=== PATIENT | female | born 1985 | race American Indian/Alaskan Native ===

== ENCOUNTER 2019-07-21 10:39 | Emergency (ER) | payer OTHER ==
[~2019-07-21] VITALS: Ht 165.1 cm; Wt 74.8 kg
[~2019-07-21 10:39] MED LIST: CIPRO500 MG PO; NORCO 5-325 TA1 EACH PO; PROVENTIL HFA6.7 GM INH
[2019-07-21] MEDS ORDERED: CYCLOBENZAPRINE10 MG PO (12:18)
== END 2019-07-21 12:48 | disposition home or self-care (01) ==
LOC: ED 10:39
DX: S39.012A Strain of muscle, fascia and tendon of lower back, initial encounter (principal); S70.02XA Contusion of left hip, initial encounter; S70.01XA Contusion of right hip, initial encounter; V49.9XXA Car occupant (driver) (passenger) injured in unspecified traffic accident, initial encounter
CPT/HCPCS: 99283

== ENCOUNTER 2021-12-04 10:03 | Inpatient (IN) | payer OTHER ==
[~2021-12-04] VITALS: Ht 165.1 cm; Wt 92.1 kg
[~2021-12-04 10:03] MED LIST changes: +CYCLOBENZAPRINE10 MG PO
--- NOTE | 2021-12-10 08:33 | NUR ---
12/10/21 0833 Sheets,Sofya 0818 PT TO ROOM 103 WITH [facility] RN AT BEDSIDE. VSS. PT REPORTS FEELING "LIKE I CAN'T TAKE A DEEP BREATH" SPINAL EDUCATION GIVEN, O2 SAT 99%, SPINAL LEVEL T-5. HOB INCREASED SLIGHTLY. UTERUS SLUGHTLY BOGGY AND FIRM WITH MESSAGE, SCANT BLEEDING NOTED. 0828 BABY TO CHEST WITH [facility]BC RN. UTERUS FIRM.
--- NOTE | 2021-12-11 10:32 | PR ---
[facility] [address] [facility] [place] [address] Signed PP Progress Notes Datetime Report Generated by CPN: 12/11/2021 10:32 SUBJECTIVE: [id number] Pain: Within Normal Limits Nausea/Vomiting: Denies Vital Signs: [id number] Vital Signs: Reviewed; Within Normal Limits Notable Details: PP Hgb/Hct = 9.0/27.2 EXAM: Ongoing Abdomen/Uterus: Normal Lochia: Normal Extremities: Normal Incision: Normal IMPRESSION/PLAN/PROCEDURES: [id number] Impression: Normal Progression Other Impression: PP Anemia Plan: Continue Present Management Procedures: None Progress Notes: Doing well, without complaint, tolerating food well, voiding without difficulty. Encouraged to increase activity. Signing Physician: Leticia Baca MD Copies: ~ *Electronically Signed* 12/11/21 1032 LETICIA BACA MD PATIENT NAME: MORGAN JA PROGRESS NOTE DATE OF : 83 PHYSICIAN: LETICIA BACA MD RPT #: [id number] REPORT IS CONFIDENTIAL AND NOT TO BE RELEASED WITHOUT AUTHORIZATION
--- NOTE | 2021-12-11 10:32 | OR ---
[facility] [address] [place], [place] [address] Signed DATE OF OPERATION: 12/10/2021 SURGEON: Camacho Huynh MD The patient of Dr. Huynh. PREOPERATIVE DIAGNOSES: 1. Term . 2. Previous section x2. POSTOPERATIVE DIAGNOSES: 1. Term . 2. Previous section x2. PROCEDURES: Repeat low transverse segment delivery, live male infant. BUFFING LINE SET UP WORKER: Michele Gar.O. ANESTHESIA: Spinal. ESTIMATED BLOOD LOSS: 500 mL. COMPLICATIONS: None. DRAINS: Romero to bladder. FINDINGS: Live male infant, Apgars 6, 8, 9. Weight 8 pounds 9 ounces. Normal uterus except for thinning lower uterine segment and some broad, but filmy omental adhesions at the upper end of the peritoneal incision. Normal tubes and ovaries bilateral. Live male infant, Apgars 6, 8, and 9. Weight 8 pounds 9 ounces. DESCRIPTION OF PROCEDURE: The patient was brought to the operating room, placed in supine position. After Electronically Signed By: CAMACHO HUYNH MD 12/11/21 1032 PATIENT NAME: MORGAN AJ OPERATIVE REPORT DATE OF : 83 REPORT #: [id number] PHYSICIAN: CAMACHO HUYNH MD PCP: OTHER PCP REPORT IS CONFIDENTIAL AND NOT TO BE RELEASED WITHOUT AUTHORIZATION [facility] [address] [place] [address] [place], [place] [address] Signed adequate spinal anesthesia was obtained, she was prepped and draped in the usual sterile fashion. Romero catheter placed in the bladder. Pfannenstiel skin incision was made through previous surgical scar using a scalpel. Subcutaneous tissue was dissected with scalpel and Bovie. Fascia was nicked with scalpel and extended in transverse fashion using curved scissors. The underlying abdominal musculature was bluntly sharply along the midline. The peritoneum was grasped, hemostats elevated, nicked with scissors and extended in vertical fashion using curved scissors. Beck self-retaining retractor was inserted into the incision and tightened in place. The lower uterine segment was identified and noted to be thin, but there was no window present. The lower uterine segment was carefully nicked with scalpel. Finger dissection used to open the incision in a transverse fashion. Clear fluid came from the incision. The head was noted to be in vertex BORIS presentation and the head was easily delivered from the incision. The rest of the was easily delivered from the incision. The cord was doubly clamped and cut. The passed off table in good condition awaiting nurse. The placenta was manually removed. Uterine cavity was explored a lap pad to remove any retained membranes. An angle stitch of 0-Monocryl was placed at one end of the incision and a running locking stitch of 0-Monocryl starting at the other end used to close the incision. A second running stitch of 0-Monocryl was used to imbricate the first layer. Good hemostasis was noted. The entire pelvis was irrigated, suctioned, and examined, and any superficial bleeding spots cauterized with the Bovie. The Beck retractor was removed. The omental adhesions were noted, were broad and thin, but since they were above the area of dissection, it was decided not to attempt to take these down at this time. The anterior wall peritoneum was closed using running stitch of 2-0 Vicryl suture. The abdominal musculature was reapproximated using interrupted stitch of 0-Vicryl suture. The abdominal wall was irrigated, suctioned, and examined, and any bleeding spots cauterized with the Bovie. The fascia was closed using two running stitch of 0-Vicryl suture meeting in the midline. Subcutaneous tissue was irrigated, suctioned, and examined, and any bleeding spots cauterized with the Bovie. The subcuticular tissue was then closed using interrupted stitches of 3-0 Vicryl sutures. Skin was reapproximated using skin clips. The patient tolerated the procedure well, went to the recovery room in good condition. The sponge, needle, and instrument counts were correct at the end of the procedure. Camacho Huynh MD MJB/MODL /[id number] Electronically Signed By: CAMACHO HUYNH MD 12/11/21 1032 PATIENT NAME: MORGAN AJ OPERATIVE REPORT DATE OF : 83 REPORT #: [id number] PHYSICIAN: CAMACHO HUYNH MD PCP: OTHER PCP REPORT IS CONFIDENTIAL AND NOT TO BE RELEASED WITHOUT AUTHORIZATION [facility] [address] [place] [id number] Signed Copies: ~ Electronically Signed By: CAMACHO HUYNH MD 12/11/21 1032 PATIENT NAME: MORGAN AJ FRANKIE OPERATIVE REPORT DATE OF : 83 REPORT #: [id number] PHYSICIAN: CAMACHO HUYNH MD PCP: OTHER PCP REPORT IS CONFIDENTIAL AND NOT TO BE RELEASED WITHOUT AUTHORIZATION
--- NOTE | 2021-12-12 08:22 | PR ---
[facility] [address] [facility] [place] [address] Signed PP Progress Notes Datetime Report Generated by CPN: 12/12/2021 08:22 SUBJECTIVE: [id number] Pain: Within Normal Limits Nausea/Vomiting: Denies Vital Signs: [id number] Vital Signs: Reviewed; Within Normal Limits Notable Details: PP Hgb/Hct = 9.0/27.2 EXAM: Ongoing Abdomen/Uterus: Normal Lochia: Normal Extremities: Normal Incision: Normal IMPRESSION/PLAN/PROCEDURES: [id number] Impression: Normal Progression Other Impression: PP Anemia Plan: Discharge Procedures: None Progress Notes: Doing well, without complaint, ready to go home. Signing Physician: Leticia Baca MD Copies: ~ *Electronically Signed* 12/12/21821 LETICIA BACA MD PATIENT NAME: MORGAN AJ PROGRESS NOTE DATE OF : 83 PHYSICIAN: LETICIA BACA MD RPT #: [id number] REPORT IS CONFIDENTIAL AND NOT TO BE RELEASED WITHOUT AUTHORIZATION
== END 2021-12-12 12:10 | disposition home or self-care (01) | DRG 787 ==
LOC: FBC 12-10 05:25
PROVIDERS: ADMIT General Practice; ATTEND General Practice
PROC: 10D00Z1 Extraction of Products of Conception, Low, Open Approach (ICD-10-PCS; principal; 2021-12-10 07:30)
DX: O34.211 Maternal care for low transverse scar from previous cesarean delivery (principal); D62 Acute posthemorrhagic anemia; Z3A.39 39 weeks gestation of pregnancy; Z37.0 Single live birth; Z67.40 Type O blood, Rh positive; O99.03 Anemia complicating the puerperium; Z86.16 Personal history of COVID-19; O24.420 Gestational diabetes mellitus in childbirth, diet controlled; Z90.49 Acquired absence of other specified parts of digestive tract; Z98.890 Other specified postprocedural states
CPT/HCPCS: 36415; 85027; 86850; 86900; 86901; A9270; J0690; J1100; J1644; J2001; J2274; J2370; J2405; J2590; J7121